=== PATIENT | male | born 1995 | race Caucasian/White ===

== ENCOUNTER → 2017-05-05 | Outpatient (CLI) | payer BC ==
--- NOTE | 2017-05-05 07:44 | MR ---
MRI CERVICAL SPINE: CLINICAL HISTORY: Cervical region radiculopathy per order. Headaches with tingling pain and tightness and spasms for 3 months causing pain or weakness into both arms and fingers per patient. TECHNIQUE: Multiplanar, multisequence imaging of the cervical spine is performed without IV contrast. COMPARISON: None. FINDINGS: There is partial visualization of a mucous retention cyst or polyp in inferior left maxilla ry sinus on sagittal image 1. Exam is suboptimal as is degraded by motion artifact. Sagittal images o f the cervical spine show the craniocervical junction to appear within normal limits. The cervical a nd upper thoracic spinal cord is normal in course, caliber, and signal. Vertebral alignment is anato luna. The vertebral body and intravertebral disk heights are normal.. Tiny posterior disc herniations are noted C2-C3, C5-C6, and C6-C7 levels minimally effacing anterior thecal sac on sagittal images. The bone marrow signal intensity is within normal limits. No significant spurring is seen. Axial images at C2-C3 level shows central disc protrusion mildly effacing anterior thecal sac, bilate ral neural foramina are patent. Axial images at C3-C4 level shows a more prominent right paracentral disc protrusion effacing kiran lateral thecal sac and causing asymmetric moderate right-sided neural foraminal narrowing. Axial images at C4-C5 level show less prominent but also right foraminal disc protrusion causing mild right-sided neural foraminal narrowing. Axial images at C5-C6 level show lobulated posterior disc protrusion mildly effacing anterior thecal sac and causing mild right-sided neural foraminal narrowing. Axial images at C6-C7 level show mild broad based disc protrusion minimally effacing anterior thecal sac, bilateral neural foramina are patent. Axial images at C7-T1 level are felt within normal limits. IMPRESSION: Multilevel degenerative changes in cervical spine as detailed above. Attention to C3-C4 l evel where most prominent disc herniation is identified.
== END | disposition home or self-care (01) ==
LOC: RADMRIMAIN 06:18
PROVIDERS: ATTEND Family Medicine
DX: M50.11 Cervical disc disorder with radiculopathy, high cervical region (principal); M47.22 Other spondylosis with radiculopathy, cervical region
CPT/HCPCS: 72141

== ENCOUNTER → 2017-06-18 | Outpatient (CLI) | payer BC ==
--- NOTE | 2017-06-18 08:45 | US ---
EXAMINATION TYPE: US abdomen complete DATE OF EXAM: 06/18/2017 COMPARISON: NONE CLINICAL HISTORY: R10.813 Right lower quadrant pain, RUQ pain. EXAM MEASUREMENTS: Liver Length: 13.1 cm Gallbladder Wall: 0.2 cm CBD: 0.2 cm Spleen: 10.8 cm Right Kidney: 11.2 x 5.0 x 5.3 cm Left Kidney: 11.1 x 6.2 x 5.9 cm Pancreas: Obscured by bowel gas Liver: wnl Gallbladder: wnl Evidence for sonographic Smith's sign: no CBD: wnl Spleen: wnl Right Kidney: Inferior pole obscured by bowel gas Left Kidney: Superior pole obscured by bowel gas Upper IVC: wnl Abd Aorta: wnl RLQ at area of pain scanned, tubular structure seen in this area that appears to be a portion of the appendix scanned. Portion visualized wnl. The liver is homogenous. The intrahepatic portion of the IVC and proximal abdominal aorta are within normal limits. There is no evidence of cholelithiasis. Common bile duct is unremarkable. The visu alized portions of the pancreas are homogenous. The spleen is unremarkable. Kidneys are symmetric a nd free of hydronephrosis. No renal lesions are seen. IMPRESSION: 1. No significant abnormality appreciated at this time.
--- NOTE | 2017-06-18 09:13 | XR ---
Cervical spine HISTORY: Headache Correlation to MR cervical spine 05/05/2017, 7 views of the cervical spine Cervical vertebral bodies show preserved height, alignment, and bone mineralization. Disc spaces and prevertebral soft tissues are normal. Mild spondylosis noted at C4-5, C6-7. No significant listhesis on flexion and extension views. Oblique views limited for evaluation of the foramina on the left, on the right there is some foraminal encroachment at C3-4. IMPRESSION: Degenerative disc disease. Additional findings above.
== END | disposition home or self-care (01) ==
LOC: RADUSWWP 07:01
PROVIDERS: ATTEND Family Medicine
DX: M50.30 Other cervical disc degeneration, unspecified cervical region (principal); M47.812 Spondylosis without myelopathy or radiculopathy, cervical region; R10.813 Right lower quadrant abdominal tenderness
CPT/HCPCS: 72052; 76700

== ENCOUNTER 2017-07-13 10:44 | Day surgery (SDC) | payer BC ==
[2017-07-09 11:20] VITALS: BMI 28.8
[2017-07-13] MEDS ORDERED: LACTATED RINGERS 1,000 ML IV ONE (11:07)
[2017-07-13] MEDS ORDERED: LIDOCAINE 1% 20 ML VIAL (10MG/ML) FOR IV START INTRADERMA ONE (11:08)
[2017-07-13 11:17] VITALS: TEMP 98.2
[2017-07-13] MEDS ORDERED: PROPOFOL 10 MG/ML 20 ML VIAL IV ONE (11:17)
[2017-07-13] MEDS ORDERED: LIDOCAINE 1% INJ 10MG/ML (20 ML MDV) ONE (11:17)
[2017-07-13] MEDS ORDERED: fentaNYL (PF) 50 MCG/ML 2 ML AMP ONE (11:17)
--- NOTE | 2017-07-13 12:01 | P.PCN ---
Date of Procedure: 07/13/17 Procedure(s) Performed: Procedures: 1. Esophagogastroduodenoscopy and biopsy. 2. Colonoscopy and biopsy. Reoperative diagnosis: Abdominal pain, weight loss and blood in the stools. Postoperative diagnosis: 1. Small sliding hiatal hernia with low-grade distal esophagitis. 2. Mild gastritis and duodenitis. 3. Normal colon and terminal ileum. 4. Multiple biopsies obtained from the duodenum, antrum and esophagus. Preparation: HalfLytely prep. Sedation: Was provided by anesthesia. Brief clinical history: The patient is a 22-year-old male who is scheduled for this evaluation for the above reasons. The patient, apparently, lost around 30 pounds over the last 3 months and had intermittent having issues with epigastric and lower abdominal pain and blood streaking of his stools over the last 3 or 4 weeks. Bowel movements before that on the soft side. No extraintestinal manifestations of inflammatory bowel disease. Had issues with reflux in the past. Procedure: With the patient on his left lateral decubitus position and after informed consent and adequate sedation, I passed the Olympus-GIF 160 video upper endoscope through the cricopharyngeus down the esophagus. There was a small sliding hiatal hernia. The distal esophagus showed a short superficial linear erosion or 2 but no ulcers, strictures or Siddiqui's esophagus. The endoscope was then passed into the stomach which was insufflated with air and inspected in detail including the retroflex view in the cardia. There was mottling, erythema and fading erosions in the antrum consistent with gastritis but no ulcers or bleeding. Pyloric channel did not show any ulcers. Duodenal bulb showed the edema, erythema and few erosions but no ulcers or bleeding. Post bulbar area and descending duodenum appeared healthy. I obtained biopsies from the duodenum, antrum and esophagus then the endoscope was withdrawn and I proceeded with the colonoscopy. Perianal area did not show any definite fissures or fistulas. There were no masses felt on digital rectal examination. The Olympus CFQ 160L video colonoscope was then inserted in the rectum in the usual fashion and advanced to the cecum. I intubated the ileocecal valve and examined the terminal ileum. Terminal ileum and colon appeared healthy with no edema, erythema, friability , ulceration, exudation or spontaneous bleeding. I obtained biopsies from the terminal ileum and randomly from the colon then I retroflexed the endoscope in the rectum before the endoscope was withdrawn. No definite hemorrhoids were seen. The patient tolerated the procedure well. Plan: The patient was reassured. Will await biopsy results and make further plans based on his course and biopsy results. He will follow up with you as planned and I will be happy to see in the office of his symptoms persist or recur.
[2017-07-13 12:09] VITALS: BP 123/77; PULSE 77; RESP 16
== END 2017-07-13 13:14 | disposition home or self-care (01) ==
LOC: ORWHC2ENDO 10:44
DX: K29.50 Unspecified chronic gastritis without bleeding (principal); K20.9 Esophagitis, unspecified; K44.9 Diaphragmatic hernia without obstruction or gangrene; K29.80 Duodenitis without bleeding; Z79.2 Long term (current) use of antibiotics
CPT/HCPCS: 88305; 45380; 43239; J2001; J3010; J2704

== ENCOUNTER 2017-11-20 09:48 | Emergency (ER) | payer BC ==
[2017-11-20] MEDS ORDERED: diphenhydrAMINE 50 MG/ML 1 ML VIAL IVP STA (10:13)
--- NOTE | 2017-11-20 10:15 | ED ---
General Adult HPI - General Chief complaint: Chest Pain Time Seen by Provider: 11/20/17 10:08 Source: patient, RN notes reviewed Mode of arrival: wheelchair Limitations: no limitations - History of Present Illness Initial comments: Patient is a pleasant 22-year-old male presenting to the emergency Department with complaints of chest discomfort. Patient was undergoing MRI of the brain secondary to chronic headaches. Following injection patient started getting sharp chest discomfort. Patient states this was moderate. Patient states this was around 20 minutes. Patient states that this time it is near resolved. Patient states only mild warmth sensation at this time. No associated dyspnea. No nausea or vomiting. No diaphoresis. No history of similar symptoms previously. No known history of heart disease. - Related Data Home Medications Medication Instructions Recorded Confirmed Multivitamins, Thera [Multivitamin 1 tab PO DAILY 07/21/17 07/21/17 (formulary)] Nexium(Dose Unknown) 1 tab PO DAILY 07/21/17 07/21/17 Previous Rx's Medication Instructions Recorded predniSONE 20 mg PO DAILY #5 tab 11/20/17 Allergies Allergy/AdvReac Type Severity Reaction Status Date / Time antibiotic Allergy Unknown Uncoded 11/20/17 09:51 Review of Systems ROS Statement: Those systems with pertinent positive or pertinent negative responses have been documented in the HPI. ROS Other: All systems not noted in ROS Statement are negative. Constitutional: Denies: fever Eyes: Denies: eye pain ENT: Denies: ear pain Respiratory: Denies: cough, dyspnea Cardiovascular: Reports: chest pain Endocrine: Denies: fatigue Gastrointestinal: Denies: abdominal pain Genitourinary: Denies: dysuria Musculoskeletal: Denies: back pain Skin: Denies: rash Neurological: Denies: weakness, confusion Past Medical History Past Medical History: GERD/Reflux Additional Past Medical History / Comment(s): See Dr Swanson H&P, "silght prolonged heart beat", having dizzy spells, History of Any Multi-Drug Resistant Organisms: None Reported Additional Past Surgical History / Comment(s): colonoscopy Past Anesthesia/Blood Transfusion Reactions: No Reported Reaction Past Psychological History: No Psychological Hx Reported Smoking Status: Never smoker Past Alcohol Use History: Daily Past Drug Use History: None Reported - Past Family History Mother Family Medical History: No Reported History General Exam Limitations: no limitations General appearance: alert, in no apparent distress Head exam: Present: atraumatic Eye exam: Present: normal appearance, PERRL ENT exam: Present: normal oropharynx Neck exam: Present: normal inspection Respiratory exam: Present: normal lung sounds bilaterally. Absent: chest wall tenderness Cardiovascular Exam: Present: regular rate, normal rhythm Expanded Peripheral pulses: 2+: Radial (R), Radial (L), Posterior Tibialis (R), Posterior Tibialis (L) GI/Abdominal exam: Present: soft. Absent: tenderness Extremities exam: Present: normal inspection. Absent: pedal edema, calf tenderness Neurological exam: Present: alert Psychiatric exam: Present: normal affect, normal mood Skin exam: Present: normal color Course Vital Signs 11/20/17 09:51 Temperature 98.3 F Pulse Rate 97 Respiratory 18 Rate Blood Pressure 138/86 O2 Sat by Pulse 98 Oximetry EKG Findings - EKG Comments: EKG Findings:: Normal sinus rhythm 90. [place] 186. QRS 106. QT 340. QTc 425. Normal axis. Normal QRS. No acute ST change. Medical Decision Making - Medical Decision Making Patient reevaluated and resting comfortably in bed. Symptom-free at this time. Patient updated on results and need for follow-up. - Lab Data Result diagrams: 11/20/17 10:36 11/20/17 10:36 Lab Results 11/20/17 11/20/17 11/20/17 Range/Units 10:36 10:36 10:36 WBC 5.8 (3.8-10.6) k/uL RBC 4.88 (4.30-5.90) m/uL Hgb 14.9 (13.0-17.5) gm/dL Hct 44.8 (39.0-53.0) % MCV 91.9 (80.0-100.0) fL MCH 30.5 (25.0-35.0) pg MCHC 33.2 (31.0-37.0) g/dL RDW 12.9 (11.5-15.5) % Plt Count 249 (150-450) k/uL Neutrophils % 57 % Lymphocytes % 31 % Monocytes % 5 % Eosinophils % 4 % Basophils % 1 % Neutrophils # 3.3 (1.3-7.7) k/uL Lymphocytes # 1.8 (1.0-4.8) k/uL Monocytes # 0.3 (0-1.0) k/uL Eosinophils # 0.2 (0-0.7) k/uL Basophils # 0.1 (0-0.2) k/uL PT (9.0-12.0) sec INR (<1.2) APTT (22.0-30.0) sec Sodium 139 (137-145) mmol/L Potassium 4.6 (3.5-5.1) mmol/L Chloride 103 (98-107) mmol/L Carbon Dioxide 24 (22-30) mmol/L Anion Gap 12 mmol/L BUN 13 (9-20) mg/dL Creatinine 0.98 (0.66-1.25) mg/dL Est GFR (CKD-EPI)AfAm >90 (>60 ml/min/1.73 sqM) Est GFR (CKD-EPI)NonAf >90 (>60 ml/min/1.73 sqM) Glucose 106 H (74-99) mg/dL Calcium 9.7 (8.4-10.2) mg/dL Magnesium 1.7 (1.6-2.3) mg/dL Total Bilirubin 0.5 (0.2-1.3) mg/dL AST 53 (17-59) U/L ALT 83 H (21-72) U/L Alkaline Phosphatase 81 (38-126) U/L Total Creatine Kinase 227 H (55-170) U/L CK-MB (CK-2) 1.8 (0.0-2.4) ng/mL CK-MB (CK-2) Rel Index 0.8 Troponin I <0.012 (0.000-0.034) ng/mL Total Protein 8.0 (6.3-8.2) g/dL Albumin 4.7 (3.5-5.0) g/dL 11/20/17 Range/Units 10:36 WBC (3.8-10.6) k/uL RBC (4.30-5.90) m/uL Hgb (13.0-17.5) gm/dL Hct (39.0-53.0) % MCV (80.0-100.0) fL MCH (25.0-35.0) pg MCHC (31.0-37.0) g/dL RDW (11.5-15.5) % Plt Count (150-450) k/uL Neutrophils % % Lymphocytes % % Monocytes % % Eosinophils % % Basophils % % Neutrophils # (1.3-7.7) k/uL Lymphocytes # (1.0-4.8) k/uL Monocytes # (0-1.0) k/uL Eosinophils # (0-0.7) k/uL Basophils # (0-0.2) k/uL PT 10.1 (9.0-12.0) sec INR 1.0 (<1.2) APTT 26.2 (22.0-30.0) sec Sodium (137-145) mmol/L Potassium (3.5-5.1) mmol/L Chloride (98-107) mmol/L Carbon Dioxide (22-30) mmol/L Anion Gap mmol/L BUN (9-20) mg/dL Creatinine (0.66-1.25) mg/dL Est GFR (CKD-EPI)AfAm (>60 ml/min/1.73 sqM) Est GFR (CKD-EPI)NonAf (>60 ml/min/1.73 sqM) Glucose (74-99) mg/dL Calcium (8.4-10.2) mg/dL Magnesium (1.6-2.3) mg/dL Total Bilirubin (0.2-1.3) mg/dL AST (17-59) U/L ALT (21-72) U/L Alkaline Phosphatase (38-126) U/L Total Creatine Kinase (55-170) U/L CK-MB (CK-2) (0.0-2.4) ng/mL CK-MB (CK-2) Rel Index Troponin I (0.000-0.034) ng/mL Total Protein (6.3-8.2) g/dL Albumin (3.5-5.0) g/dL - Radiology Data Radiology results: image reviewed (Chest x-ray shows no acute process) Disposition Clinical Impression: Chest pain, Contrast media adverse reaction Disposition: HOME SELF-CARE Condition: Stable Instructions: Chest Pain (ED) Additional Instructions: Please follow-up with primary care physician in the next day or 2 for recheck. Have primary care physician review visit from today as well as your MRI. Return for chest pain, difficulty breathing, rash, swelling of the throat or tongue or face, worsening symptoms or other concerns. [id number] Benadryl 4 times daily for the next 5 days. Prescriptions: predniSONE 20 mg PO DAILY #5 tab Is patient prescribed a controlled substance at d/c from ED?: No Referrals: Anayeli Sales DO [Primary Care Provider] - 1-2 days Time of Disposition: 11:33
--- NOTE | 2017-11-20 10:28 | MR ---
EXAMINATION TYPE: MR brain wo con DATE OF EXAM: 11/20/2017 10:14 AM. COMPARISON: NONE. HISTORY: Dizziness and hearing loss Technique: Multiplanar, multiecho imaging of the brain was obtained without intravenous contrast. The patient could not complete the examination due to chest pain. He was transferred to the ER. FINDINGS: Midline structures are unremarkable. There is a normal craniocervical junction. Echoplanar diffusion imaging is normal. There is a 2.7 cm retention cyst or polyp involving the left maxillary sinus. There are normal vascular flow voids. The orbits are unremarkable. There is no evidence of a CP angle mass lesion. There are scattered subcortical FLAIR lesions throughout both cerebral hemispheres. The largest measu res approximately 4 mm. These are nonspecific. Differential diagnosis includes hypertension, migraine headache, small vessel disease, demyelination and Lyme's disease. There is no mass effect or midline shift. I do not see evidence of intracranial blood. IMPRESSION: 1. NO ACUTE INTRACRANIAL ABNORMALITY. 2. SCATTERED FLAIR LESIONS. THESE ARE NONSPECIFIC.
[2017-11-20 10:48] LABS: Basophils # (A) 0.1 k/uL (0-0.2); Basophils % (A) 1 %; Eosinophils # (A) 0.2 k/uL (0-0.7); Eosinophils % (A) 4 %; HCT 44.8 % (39.0-53.0); HGB 14.9 gm/dL (13.0-17.5); Lymphocytes # (A) 1.8 k/uL (1.0-4.8); Lymphocytes % (A) 31 %; MCH 30.5 pg (25.0-35.0); MCHC 33.2 g/dL (31.0-37.0); MCV 91.9 fL (80.0-100.0); Mean Platelet Volume 6.5; Monocytes # (A) 0.3 k/uL (0-1.0); Monocytes % (A) 5 %; Neutrophils # (A) 3.3 k/uL (1.3-7.7); Neutrophils % (A) 57 %; Platelet Count 249 k/uL (150-450); RBC 4.88 m/uL (4.30-5.90); RDW 12.9 % (11.5-15.5); WBC 5.8 k/uL (3.8-10.6)
[2017-11-20 10:57] LABS: ALT 83 U/L (21-72); AST 53 U/L (17-59); Albumin 4.7 g/dL (3.5-5.0); Alkaline Phosphatase 81 U/L (38-126); Anion Gap 12 mmol/L; Blood Urea Nitrogen 13 mg/dL (9-20); Calcium 9.7 mg/dL (8.4-10.2); Carbon Dioxide 24 mmol/L (22-30); Chloride 103 mmol/L (98-107); Glucose 106 mg/dL (74-99); Magnesium 1.7 mg/dL (1.6-2.3); Partial Thromboplastin Time 26.2 sec (22.0-30.0); Potassium 4.6 mmol/L (3.5-5.1); Prothrombin Time 10.1 sec (9.0-12.0); Sodium 139 mmol/L (137-145); Total Bilirubin 0.5 mg/dL (0.2-1.3)
[2017-11-20 11:10] LABS: Creatine Kinase 227 U/L (55-170)
--- NOTE | 2017-11-20 11:14 | XR ---
EXAMINATION TYPE: XR chest 2V DATE OF EXAM ORDERED: 11/20/2017 HISTORY: Chest Pain. REFERENCE: None. FINDINGS: The lungs are clear. Pleural spaces are clear. Heart size is normal. IMPRESSION: NORMAL CHEST.
[2017-11-20 11:23] LABS: Creatine Kinase MB 1.8 ng/mL (0.0-2.4); Troponin I <0.012 ng/mL (0.000-0.034)
[2017-11-20 11:42] VITALS: BP 138/79; PULSE 80; RESP 16; TEMP 98
== END 2017-11-20 11:42 | disposition home or self-care (01) ==
LOC: EC 09:48
DX: R07.9 Chest pain, unspecified (principal); T50.8X5A Adverse effect of diagnostic agents, initial encounter; R51 Headache; K21.9 Gastro-esophageal reflux disease without esophagitis; Z79.899 Other long term (current) drug therapy; Z88.1 Allergy status to other antibiotic agents
CPT/HCPCS: 36415; 93005; 80053; 82550; 82553; 83735; 84484; 85025; 85610; 85730; 71046; 70551; 99285; 96374; J1200

== ENCOUNTER 2017-11-21 00:26 | Emergency (ER) | payer BC ==
[2017-11-21 00:33] VITALS: BP 150/93; PULSE 125; RESP 24; TEMP 98.2
[2017-11-21] MEDS ORDERED: KETOROLAC 30 MG/ML 1 ML VIAL IM STA (02:14)
[2017-11-21] MEDS ORDERED: diphenhydrAMINE 50 MG/ML 1 ML VIAL IM STA (02:14)
--- NOTE | 2017-11-21 02:14 | ED ---
General Adult HPI - General Chief complaint: Neck Pain/Injury Stated complaint: Neck injury Time Seen by Provider: 11/21/17 00:35 Source: patient Mode of arrival: ambulatory Limitations: no limitations - History of Present Illness Initial comments: Mina is a 22-year-old gentleman with a recent history of recurrent headaches for which she is undergoing a very thorough workup including head CT and an MRI of the head which was performed earlier today. Patient developed chest pain during his MRI and was evaluated in our emergency department. He is subsequently discharged home. Patient reports that throughout the evening he is developed progressively worsening pressure in his face above his eyes, around his nose. He reports that he feels as though his teeth are going to fall out due to the pain. Patient reports he has a history of seasonal ALLERGIES and has used Flonase in the past but never experienced pressure pain this severe. Patient reports he is currently not taking anything for seasonal ALLERGIES. He denies any recent fevers, chills, nausea or vomiting. also complains of chronic headache, neck pain and pain throughout his body. Patient has been following with multiple specialties for this. He does have a plan for follow-up with neurology for further evaluation of possible MS versus neuropathies. - Related Data Home Medications Medication Instructions Recorded Confirmed Multivitamins, Thera [Multivitamin 1 tab PO DAILY 07/21/17 07/21/17 (formulary)] Nexium(Dose Unknown) 1 tab PO DAILY 07/21/17 07/21/17 Previous Rx's Medication Instructions Recorded predniSONE 20 mg PO DAILY #5 tab 11/20/17 Cetirizine HCl [Zyrtec] 10 mg PO DAILY #30 tab 11/21/17 Fluticasone Nasal [place] [Flonase 2 spr EA NOSTRIL DAILY #1 bottle 11/21/17 Nasal [place]] Allergies Allergy/AdvReac Type Severity Reaction Status Date / Time antibiotic Allergy Unknown Uncoded 11/21/17 00:34 Review of Systems ROS Statement: Those systems with pertinent positive or pertinent negative responses have been documented in the HPI. ROS Other: All systems not noted in ROS Statement are negative. Past Medical History Past Medical History: GERD/Reflux Additional Past Medical History / Comment(s): See Dr Swanson H&P, "silght prolonged heart beat", having dizzy spells, History of Any Multi-Drug Resistant Organisms: None Reported Additional Past Surgical History / Comment(s): colonoscopy Past Anesthesia/Blood Transfusion Reactions: No Reported Reaction Past Psychological History: No Psychological Hx Reported Smoking Status: Never smoker Past Alcohol Use History: Daily Past Drug Use History: None Reported - Past Family History Mother Family Medical History: No Reported History General Exam - General Exam Comments Initial Comments: GENERAL: Patient is well-developed and well-nourished. Patient is nontoxic and well- hydrated and is in mild distress. HENT: Normocephalic, Atraumatic. Neck is soft and supple. No significant lymphadenopathy is noted. Oropharynx is clear. Moist mucous membranes. There is tenderness to palpation of the bilateral maxillary sinuses Normal dentition, normal oropharynx EYES: The sclera were anicteric and conjunctiva were pink and moist. Extraocular movements were intact and pupils were equal round and reactive to light. Eyelids were unremarkable. PULMONARY: Unlabored respirations. Good breath sounds bilaterally. No audible rales rhonchi or wheezing was noted. CARDIOVASCULAR: There is a regular rate and rhythm without any murmurs gallops or rubs. ABDOMEN: Soft and nontender with normal bowel sounds. SKIN: Skin is clear with no lesions or rashes and otherwise unremarkable. NEUROLOGIC: Patient is alert and oriented x3. Cranial nerves II through XII are grossly intact. Motor and sensory are also intact. Normal speech, volume and content. Symmetrical smile. MUSCULOSKELETAL: Normal extremities with adequate strength and full range of motion. No lower extremity swelling or edema. No calf tenderness. LYMPHATICS: No significant lymphadenopathy is noted PSYCHIATRIC: Patient is anxious and has a helpless affect Limitations: no limitations Limitations: no limitations Course Vital Signs 11/21/17 00:29 Temperature 98.2 F Pulse Rate 125 H Respiratory 24 Rate Blood Pressure 150/93 O2 Sat by Pulse 98 Oximetry Medical Decision Making - Medical Decision Making Patient was seen and evaluated, history was obtained from patient and review of medical records. The patient has a history of headaches, underwent MRI today. Returns today with sinus pressure reported feeling as though his upper teeth are going to be pushed out of his skull. Physical exam is unremarkable. Oral dentition is good with no signs of infection. There is significant tenderness to palpation of the bilateral maxillary sinuses. No evidence of acute sinus infection. From chronic headache. IM medications were ordered for the headache. We'll plan management with outpatient medications including Flonase and a antihistamine for treatment of sinus pressure. Patient is agreeable to this. Patient also curious about the results of his MRI. Printed MRI results were given to the patient. I had a brief discussion with him regarding the results. I advised him that he requires further follow-up with his neurosurgeon who ordered MRI as well as neurology for further management and evaluation. Patient somewhat anxious over the results which could indicate possible MS disease that he is not familiar with. I advised him that he needs to discuss this with his neurologist and discussed with his neurologist whether or not they would pursue further workup. I do suspect that the patient return to the ER today due to minimal symptoms and anxiety over MRI results and wanting to receive his MRI results. These were given to the patient. Disposition Clinical Impression: Headache, Sinus pressure Disposition: HOME SELF-CARE Condition: Good Instructions: Cluster Headache (ED), Migraine Headache (ED), Tension Headache ( ED), Allergies (ED) Prescriptions: Cetirizine HCl [Zyrtec] 10 mg PO DAILY #30 tab Fluticasone Nasal [place] [Flonase Nasal [place]] 2 spr EA NOSTRIL DAILY #1 bottle Is patient prescribed a controlled substance at d/c from ED?: No Referrals: Anayeli Sales DO [Primary Care Provider] - 1-2 days
== END 2017-11-21 03:12 | disposition home or self-care (01) ==
LOC: EC 00:26
DX: J34.89 Other specified disorders of nose and nasal sinuses (principal); K21.9 Gastro-esophageal reflux disease without esophagitis; Z79.899 Other long term (current) drug therapy; Z88.1 Allergy status to other antibiotic agents
CPT/HCPCS: 99283; 96372 ×2; J1200; J1885

== ENCOUNTER 2017-11-30 17:59 | Emergency (ER) | payer BC ==
[2017-11-30 18:06] VITALS: BP 152/94; PULSE 93; RESP 18; TEMP 98.4
[2017-11-30] MEDS ORDERED: predniSONE 50 MG TAB PO STA (18:37)
[2017-11-30] MEDS ORDERED: FAMOTIDINE 20 MG TAB PO STA (18:37)
--- NOTE | 2017-11-30 18:37 | ED ---
General Adult HPI - General Chief complaint: Chest Pain Stated complaint: back and chest pain Time Seen by Provider: 11/30/17 18:07 Source: patient Mode of arrival: ambulatory Limitations: no limitations - History of Present Illness Initial comments: 22-year-old male patient presents to the emergency department today for evaluation of a burning sensation across his upper chest, upper back, and his left arm. The patient states this started a couple of days ago. Patient states that there is a constant burning sensation however does seem to worsen at times. Patient states that it seemed to worsen today so he presented here for further evaluation. He denies any evidence of rash, lip swelling, tongue swelling, or throat swelling. States he is taking amoxicillin at this time for acute sinusitis. Patient states he is never taken this antibiotic before. He denies exposure to any other new substances including medications, soaps, lotions, creams, foods, or new clothing. Denies any itching to the area. Denies any shortness of breath, cough, or wheezing. Patient denies any recent fever, chills, shortness breath, chest pain, abdominal pain, nausea, vomiting, diarrhea, constipation, back pain, numbness, tingling, dizziness, weakness, hematuria, dysuria, urinary urgency, urinary frequency, headache, visual changes , or any other complaints. Patient does admit to shaving his chest with water only as lubricant a couple of days ago before the burning sensation started. He does not believe this is related. - Related Data Home Medications Medication Instructions Recorded Confirmed Amoxicillin 1,000 mg PO BID 11/30/17 11/30/17 Fluticasone Nasal [place] [Flonase 2 spr EA NOSTRIL HS 11/30/17 11/30/17 Nasal [place]] Previous Rx's Medication Instructions Recorded Azithromycin [Zithromax Z-pack] 0 mg PO DIRECTED #6 tab 11/30/17 Famotidine [Pepcid] 20 mg PO DAILY #3 tablet 11/30/17 predniSONE 50 mg PO DAILY #3 tablet 11/30/17 Allergies Allergy/AdvReac Type Severity Reaction Status Date / Time antibiotic Allergy Unknown Uncoded 11/21/17 00:34 Review of Systems ROS Statement: Those systems with pertinent positive or pertinent negative responses have been documented in the HPI. ROS Other: All systems not noted in ROS Statement are negative. Past Medical History Past Medical History: GERD/Reflux Additional Past Medical History / Comment(s): See Dr Swanson H&P, "silght prolonged heart beat", having dizzy spells, History of Any Multi-Drug Resistant Organisms: None Reported Additional Past Surgical History / Comment(s): colonoscopy Past Anesthesia/Blood Transfusion Reactions: No Reported Reaction Past Psychological History: No Psychological Hx Reported Smoking Status: Never smoker Past Alcohol Use History: Daily Past Drug Use History: None Reported - Past Family History Mother Family Medical History: No Reported History General Exam Limitations: no limitations General appearance: alert, in no apparent distress, other (This is a well- developed, well-nourished adult male patient in no acute distress. Vital signs upon presentation are temperature 98.4F, pulse 93, respirations 18, blood pressure 152/94, pulse ox 100% on room air.) Eye exam: Present: normal appearance, PERRL, EOMI. Absent: scleral icterus, conjunctival injection, periorbital swelling ENT exam: Present: normal exam, normal oropharynx, mucous membranes moist Respiratory exam: Present: normal lung sounds bilaterally. Absent: respiratory distress, wheezes, rales, rhonchi, stridor Cardiovascular Exam: Present: regular rate, normal rhythm, normal heart sounds. Absent: systolic murmur, diastolic murmur, rubs, gallop, clicks GI/Abdominal exam: Present: soft, normal bowel sounds. Absent: distended, tenderness, guarding, rebound, rigid Neurological exam: Present: alert, oriented X3, CN II-XII intact Psychiatric exam: Present: normal affect, normal mood Skin exam: Present: warm, dry, intact, normal color, rash (Erythema noted to the upper chest, neck, and upper back. No rash noted. Skin is blanchable. No petechiae. No vesicles.) Course Vital Signs 11/30/17 18:01 Temperature 98.4 F Pulse Rate 93 Respiratory 18 Rate Blood Pressure 152/94 O2 Sat by Pulse 100 Oximetry Medical Decision Making - Medical Decision Making 22-year-old male patient presents to the emergency department today for evaluation of burning sensation across his upper chest, upper back, and his left arm. Physical examination did reveal erythema to these areas. Patient is taking a new antibiotic and also does admit to shaving the areas a couple of days ago. I feel that symptoms could be related to a razor burn or as a reaction to the amoxicillin and he is taking. We'll treat for ALLERGIC reaction and just saul was instructed take Benadryl at home. He is instructed follow up with his primary care physician for recheck in 1-2 days. Return parameters were discussed in detail. He verbalizes understanding and agrees with this plan. Disposition Clinical Impression: Allergic reaction Disposition: HOME SELF-CARE Condition: Good Instructions: General Allergic Reaction (ED) Additional Instructions: Take medications as directed. Follow-up with your primary care physician for recheck in 1-2 days. Return here immediately for any new, worsening, or concerning symptoms. Prescriptions: Azithromycin [Zithromax Z-pack] 0 mg PO DIRECTED #6 tab Famotidine [Pepcid] 20 mg PO DAILY #3 tablet predniSONE 50 mg PO DAILY #3 tablet Is patient prescribed a controlled substance at d/c from ED?: No Referrals: Anayeli Sales DO [Primary Care Provider] - 1-2 days Time of Disposition: 18:37
== END 2017-11-30 18:47 | disposition home or self-care (01) ==
LOC: EC 17:59
DX: T78.40XA Allergy, unspecified, initial encounter (principal); Z79.51 Long term (current) use of inhaled steroids; Z88.1 Allergy status to other antibiotic agents
CPT/HCPCS: 99284; J7512

== ENCOUNTER 2017-12-01 19:44 | Emergency (ER) | payer BC ==
[2017-12-01 19:50] VITALS: BP 143/84; PULSE 95; RESP 18; TEMP 98.2
[2017-12-01] MEDS ORDERED: FAMOTIDINE 20 MG TAB PO STA (20:09)
[2017-12-01] MEDS ORDERED: predniSONE 50 MG TAB PO STA (20:09)
[2017-12-01] MEDS ORDERED: diphenhydrAMINE 25 MG CAP PO STA (20:09)
[2017-12-01 20:20] LABS: Glucose,Whole Blood 106 mg/dL (75-99)
--- NOTE | 2017-12-01 20:25 | ED ---
General Adult HPI - General Chief complaint: Recheck/Abnormal Lab/Rx Stated complaint: Revisit-allergic reaction Time Seen by Provider: 12/01/17 19:59 Source: patient Mode of arrival: ambulatory Limitations: no limitations - History of Present Illness Initial comments: 22-year-old male patient presents to the emergency department today for evaluation of burning sensation across his chest, abdomen, and arms. Patient states his been going on for the last 3-4 days. Patient was seen any emergency department here yesterday diagnosed with ALLERGIC reaction. He was discharged home with prescriptions for prednisone and Pepcid and also instructed to take Benadryl as needed for symptom relief. Patient states he did get his prescriptions filled has not taken his medication. Patient denies any lip swelling, tongue swelling, throat swelling, or shortness of breath. Patient has no fever or chills. Vital signs are stable. Patient denies any recent chest pain, abdominal pain, nausea, vomiting, diarrhea, constipation, back pain , numbness, tingling, dizziness, weakness, hematuria, dysuria, urinary urgency, urinary frequency, headache, visual changes, or any other complaints. - Related Data Home Medications Medication Instructions Recorded Confirmed Amoxicillin 1,000 mg PO BID 11/30/17 11/30/17 Fluticasone Nasal [place] [Flonase 2 spr EA NOSTRIL HS 11/30/17 11/30/17 Nasal [place]] Previous Rx's Medication Instructions Recorded Azithromycin [Zithromax Z-pack] 0 mg PO DIRECTED #6 tab 11/30/17 Famotidine [Pepcid] 20 mg PO DAILY #3 tablet 11/30/17 predniSONE 50 mg PO DAILY #3 tablet 11/30/17 Allergies Allergy/AdvReac Type Severity Reaction Status Date / Time Iodinated Contrast- Oral and Allergy Unknown Verified 12/01/17 19:50 IV Dye levofloxacin [From Levaquin] Allergy Unknown Verified 12/01/17 19:50 antibiotic Allergy Unknown Uncoded 12/01/17 19:50 Review of Systems ROS Statement: Those systems with pertinent positive or pertinent negative responses have been documented in the HPI. ROS Other: All systems not noted in ROS Statement are negative. Past Medical History Past Medical History: GERD/Reflux Additional Past Medical History / Comment(s): See Dr Swanson H&P, "silght prolonged heart beat", having dizzy spells, History of Any Multi-Drug Resistant Organisms: None Reported Past Surgical History: No Surgical Hx Reported Additional Past Surgical History / Comment(s): colonoscopy Past Anesthesia/Blood Transfusion Reactions: No Reported Reaction Past Psychological History: No Psychological Hx Reported Smoking Status: Never smoker Past Alcohol Use History: Daily Past Drug Use History: None Reported - Past Family History Mother Family Medical History: No Reported History General Exam Limitations: no limitations General appearance: alert, in no apparent distress, other (This is a well- developed, well-nourished adult male patient in no acute distress. Vital signs upon presentation are temperature 98.2F, pulse 95, respirations 18, blood pressure 143/84, pulse ox 99% on room air.) Eye exam: Present: normal appearance, PERRL, EOMI. Absent: scleral icterus, conjunctival injection, periorbital swelling ENT exam: Present: normal exam, normal oropharynx, mucous membranes moist Respiratory exam: Present: normal lung sounds bilaterally. Absent: respiratory distress, wheezes, rales, rhonchi, stridor Cardiovascular Exam: Present: regular rate, normal rhythm, normal heart sounds. Absent: systolic murmur, diastolic murmur, rubs, gallop, clicks GI/Abdominal exam: Present: soft, normal bowel sounds. Absent: distended, tenderness, guarding, rebound, rigid Neurological exam: Present: alert, oriented X3, CN II-XII intact Psychiatric exam: Present: normal affect, normal mood Skin exam: Present: warm, dry, intact, normal color, other (Patient has erythema surrounding the neck, no evidence of rash, vesicles, petechiae, or purpura.). Absent: rash Course Vital Signs 12/01/17 19:46 Temperature 98.2 F Pulse Rate 95 Respiratory 18 Rate Blood Pressure 143/84 O2 Sat by Pulse 99 Oximetry Medical Decision Making - Medical Decision Making 22-year-old male patient presented to the emergency department today for evaluation of burning to the skin of his chest arms and upper back. Patient was seen and evaluated here yesterday diagnosed with ALLERGIC reaction. Patient has not taken the medication he was prescribed. Patient states his symptoms are not worsened however has not gone away. Physical examination did reveal some erythema surrounding the neck. Redness to the upper chest and back has improved since yesterday. Patient was given doses of his medication here in the emergency department. He is instructed to complete prescriptions as prescribed. He is instructed follow up with his primary care physician of things do not improve over the next 1-2 days. Return parameters discussed in detail. He verbalizes understanding and agrees with this plan. - Lab Data Lab Results 12/01/17 Range/Units 20:17 POC Glucose (mg/dL) 106 H (75-99) mg/dL POC Glu [employer] Insurance ID Josefina Olsen Disposition Clinical Impression: Allergic reaction Disposition: HOME SELF-CARE Condition: Good Instructions: General Allergic Reaction (ED) Additional Instructions: Take medications as directed. Follow-up with her primary care physician for recheck in 1-2 days. Return here immediately for any new, worsening, or concerning symptoms. Is patient prescribed a controlled substance at d/c from ED?: No Referrals: Anayeli Sales DO [Primary Care Provider] - 1-2 days Time of Disposition: 20:25
== END 2017-12-01 20:31 | disposition home or self-care (01) ==
LOC: EC 19:44
DX: T78.40XA Allergy, unspecified, initial encounter (principal); Z79.51 Long term (current) use of inhaled steroids; Z91.041 Radiographic dye allergy status; Z88.1 Allergy status to other antibiotic agents
CPT/HCPCS: 36415; 99283; 99284

== ENCOUNTER 2017-12-02 17:56 | Emergency (ER) | payer BC ==
[2017-12-02 18:03] VITALS: BP 147/90; PULSE 90; RESP 20; TEMP 98.1
[2017-12-02] MEDS ORDERED: DIPH,PERTUS(ACELL)TETVAC-LF 0.5 ML VIAL IM ONE (18:56)
--- NOTE | 2017-12-02 19:07 | ED ---
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 Pt states that for the past few months he has had sharp shooting pains from neck down to hands and he feels like it is causing hand spasms. Pt was concerned he had tetanus from these symptoms. Pt does admits to some neck pain that he states he was diagnosed with herniated discs in the neck and is following up with a neurologist. Pt did state he had an abnormal MRI with lesions on the brain that were causing him great anxiety. Pt was seen here 5x in the past month for similar complaints. Pt denies headache, dizziness, confusion, muscle weakness, chest pain, shortness of breath, facial symmetry changes or any other associated symptoms. Pt states he is supposed to get blood work with neurologist in a few weeks and he would like that done now and a tetanus shot. Patient denies any recent fever, chills, shortness of breath, chest pain, back pain, abdominal pain, nausea or vomiting, numbness, dysuria or hematuria, constipation or diarrhea, headaches or visual changes, or any other complaints. Pt does state he thinks his chest looks more red than normal and he was diagnosed with an allergic reaction a few days ago but he didnt take the medication. Upon arrival pt appears well, there are no signs of acute distress. - Related Data Home Medications Medication Instructions Recorded Confirmed Ibuprofen [Motrin Ib] 400 mg PO Q6HR PRN 12/02/17 12/02/17 Allergies Allergy/AdvReac Type Severity Reaction Status Date / Time Iodinated Contrast- Oral and Allergy Unknown Verified 12/02/17 18:25 IV Dye levofloxacin [From Levaquin] Allergy Unknown Verified 12/02/17 18:25 antibiotic Allergy Unknown Uncoded 12/02/17 18:03 Review of Systems ROS Statement: Those systems with pertinent positive or pertinent negative responses have been documented in the HPI. ROS Other: All systems not noted in ROS Statement are negative. Constitutional: Denies: fever, chills Eyes: Denies: vision change ENT: Denies: ear pain, throat pain Respiratory: Denies: cough, dyspnea Cardiovascular: Denies: chest pain, palpitations, dyspnea on exertion Endocrine: Denies: fatigue Gastrointestinal: Denies: abdominal pain, nausea, vomiting, diarrhea, constipation Genitourinary: Denies: urgency, dysuria Musculoskeletal: Reports: back pain (chronic neck pain) Skin: Denies: rash, lesions Neurological: Denies: headache, weakness, numbness, paresthesias, confusion, abnormal gait, vertigo Psychiatric: Denies: anxiety, depression Past Medical History Past Medical History: GERD/Reflux Additional Past Medical History / Comment(s): See Dr Swanson H&P, "silght prolonged heart beat", having dizzy spells, History of Any Multi-Drug Resistant Organisms: None Reported Past Surgical History: No Surgical Hx Reported Additional Past Surgical History / Comment(s): colonoscopy Past Anesthesia/Blood Transfusion Reactions: No Reported Reaction Past Psychological History: No Psychological Hx Reported Smoking Status: Never smoker Past Alcohol Use History: Daily Past Drug Use History: Marijuana - Past Family History Mother Family Medical History: No Reported History General Exam - General Exam Comments Initial Comments: General: The patient is awake and alert, in no distress, and does not appear acutely ill. Eye: +3 pupils are equal, round and reactive to light, extra-ocular movements are intact. No nystagmus. There is normal conjunctiva bilaterally. No signs of icterus. No signs of photophobia. Ears, nose, mouth and throat: There are moist mucous membranes and no oral lesions. Neck: The neck is supple, there is no tenderness or JVD. Mild midline and paravertebral tenderness to palpation, . Full ROM at C-spine. No nuchal rigidty or meningeal irritation signs. Cardiovascular: There is a regular rate and rhythm. No murmur, rub or gallop is appreciated. Respiratory: Lungs are clear to auscultation, respirations are non-labored, breath sounds are equal. No wheezes, stridor, rales, or rhonchi. Musculoskeletal: Normal ROM, no tenderness. Strength 5/5. Sensation intact. Pulses equal bilaterally 2+. Neurological: A&O x 3. CN II-XII intact, There are no obvious motor or sensory deficits. Coordination appears grossly intact. Speech is normal. Skin: Skin is warm and dry and no rashes or lesions are noted. No erythema noted of chest. Psychiatric: Cooperative, appropriate mood & affect, normal judgment. Limitations: no limitations Course Vital Signs 12/02/17 18:01 Temperature 98.1 F Pulse Rate 90 Respiratory 20 Rate Blood Pressure 147/90 O2 Sat by Pulse 98 Oximetry Medical Decision Making - Medical Decision Making Upon arrival pt afebrile. Appear non toxic in no acute distress. Pt given tetanus shot. At this time I feel pt has a radiculopathy given hx of neck herniation and chronic symptoms. Pt PE unremarkable, appears WNL no evidence of weakness of the UE/LE. There are no signs/symptoms of tetanus. No signs of muscle spasms/fasciulations. Pt does complain of mild midline tenderness to palpation of the neck, no evidence of stiffness/nuchal rigidity/or menigeal irritation, pt denies headache. Inspect of the chest revealed no rashes/ erythema or lesions. Pt states that he is nervous about the lesion on MRI and wanted basic lab work, he stated he didnt want to wait until his next appointment with neurology in [facility]. At this time I feel pt remainder ROS (- ) there is no acute intracranial processes. Pt symptoms appear chronic upon chart review. Pt was given reassurance and instructed to f/u with primary care physician in the next 1-2 days. He agreed with plan and was discharged in stable condition. Case discussed with Dr. reyes prior to d/c who agrees with impression and plan. Disposition Clinical Impression: Radiculopathy affecting upper extremity Disposition: HOME SELF-CARE Condition: Good Instructions: Cervical Radiculopathy (ED) Additional Instructions: Please use medication as discussed. Please follow-up with neurologist in the next 1-2 days. Please return to emergency room if the symptoms increase or worsen or for any other concerns. Is patient prescribed a controlled substance at d/c from ED?: No Referrals: Anayeli Sales DO [Primary Care Provider] - 1-2 days Time of Disposition: 19:07
== END 2017-12-02 19:26 | disposition home or self-care (01) ==
LOC: EC 17:56
DX: M54.10 Radiculopathy, site unspecified (principal); Z23 Encounter for immunization; Z86.69 Personal history of other diseases of the nervous system and sense organs; Z88.1 Allergy status to other antibiotic agents; Z91.041 Radiographic dye allergy status
CPT/HCPCS: 90471; 90715; 99283

== ENCOUNTER 2017-12-25 13:36 | Emergency (ER) | payer BC ==
[2017-12-25] MEDS ORDERED: SODIUM CHLORIDE 0.9% 1,000 ML IV STA ×2 (14:53)
--- NOTE | 2017-12-25 15:08 | ED ---
Nausea/Vomiting/Diarrhea HPI - General Chief complaint: Nausea/Vomiting/Diarrhea Stated complaint: Body aches Time Seen by Provider: 12/25/17 14:48 Source: patient, RN notes reviewed Mode of arrival: ambulatory Limitations: no limitations - History of Present Illness Initial comments: This is a 22-year-old male who presents with complaints of 4 days of feeling exhausted some body aches he states some "nerve pain" since some dizziness. He relates this to starting after he ate some deer meat. No diarrhea no constipation he is not asked he vomited he states his been holding a bag. He did decrease oral intake. No other modifying factors at this time MD complaint: nausea, other - Related Data Home Medications Medication Instructions Recorded Confirmed Ibuprofen [Motrin Ib] 400 mg PO Q6HR PRN 12/02/17 12/25/17 Multivitamins, Thera [Multivitamin 1 tab PO DAILY 12/25/17 12/25/17 (formulary)] Previous Rx's Medication Instructions Recorded Magnesium 200 mg PO DAILY #7 tablet 12/25/17 Allergies Allergy/AdvReac Type Severity Reaction Status Date / Time Iodinated Contrast- Oral and Allergy Unknown Verified 12/25/17 15:03 IV Dye levofloxacin [From Levaquin] Allergy Unknown Verified 12/25/17 15:03 antibiotic Allergy Unknown Uncoded 12/25/17 14:30 Review of Systems ROS Statement: Those systems with pertinent positive or pertinent negative responses have been documented in the HPI. ROS Other: All systems not noted in ROS Statement are negative. Past Medical History Past Medical History: GERD/Reflux Additional Past Medical History / Comment(s): See Dr Swanson H&P, "silght prolonged heart beat", having dizzy spells, History of Any Multi-Drug Resistant Organisms: None Reported Past Surgical History: No Surgical Hx Reported Additional Past Surgical History / Comment(s): colonoscopy Past Anesthesia/Blood Transfusion Reactions: No Reported Reaction Past Psychological History: No Psychological Hx Reported Smoking Status: Never smoker Past Alcohol Use History: Daily Past Drug Use History: Marijuana - Past Family History Mother Family Medical History: No Reported History General Exam - General Exam Comments Initial Comments: This is a well-developed well-nourished awake alert oriented 3 male Limitations: no limitations General appearance: alert, in no apparent distress Head exam: Present: atraumatic, normocephalic, normal inspection Eye exam: Present: normal appearance, PERRL, EOMI. Absent: scleral icterus, conjunctival injection, periorbital swelling ENT exam: Present: mucous membranes dry Neck exam: Present: normal inspection. Absent: tenderness, meningismus, lymphadenopathy Respiratory exam: Present: normal lung sounds bilaterally. Absent: respiratory distress, wheezes, rales, rhonchi, stridor Cardiovascular Exam: Present: regular rate, normal rhythm, normal heart sounds. Absent: systolic murmur, diastolic murmur, rubs, gallop, clicks GI/Abdominal exam: Present: soft, normal bowel sounds. Absent: distended, tenderness, guarding, rebound, rigid Extremities exam: Present: normal inspection, full ROM, normal capillary refill. Absent: tenderness, pedal edema, joint swelling, calf tenderness Back exam: Present: normal inspection Neurological exam: Present: alert, oriented X3, CN II-XII intact Psychiatric exam: Present: normal affect, normal mood Skin exam: Present: warm, dry, intact, normal color. Absent: rash Course Vital Signs 12/25/17 14:29 Temperature 98.3 F Pulse Rate 91 Respiratory 18 Rate Blood Pressure 147/90 O2 Sat by Pulse 100 Oximetry Medical Decision Making - Medical Decision Making Reevaluation patient is feeling much improved after IV hydration. I did discuss the findings with him the symptoms are likely secondary to gastritis. He was slightly dehydrated I did also recommend supplementation of magnesium. He will be discharge is follow-up with his doctor return when necessary - Lab Data Result diagrams: 12/25/17 15:15 12/25/17 15:15 Lab Results 12/25/17 12/25/17 Range/Units 15:15 15:15 WBC 5.4 (3.8-10.6) k/uL RBC 4.63 (4.30-5.90) m/uL Hgb 14.9 (13.0-17.5) gm/dL Hct 43.1 (39.0-53.0) % MCV 93.0 (80.0-100.0) fL MCH 32.1 (25.0-35.0) pg MCHC 34.6 (31.0-37.0) g/dL RDW 13.0 (11.5-15.5) % Plt Count 254 (150-450) k/uL Neutrophils % 58 % Lymphocytes % 32 % Monocytes % 5 % Eosinophils % 2 % Basophils % 1 % Neutrophils # 3.1 (1.3-7.7) k/uL Lymphocytes # 1.7 (1.0-4.8) k/uL Monocytes # 0.3 (0-1.0) k/uL Eosinophils # 0.1 (0-0.7) k/uL Basophils # 0.1 (0-0.2) k/uL Sodium 139 (137-145) mmol/L Potassium 4.6 (3.5-5.1) mmol/L Chloride 104 (98-107) mmol/L Carbon Dioxide 25 (22-30) mmol/L Anion Gap 10 mmol/L BUN 15 (9-20) mg/dL Creatinine 0.85 (0.66-1.25) mg/dL Est GFR (CKD-EPI)AfAm >90 (>60 ml/min/1.73 sqM) Est GFR (CKD-EPI)NonAf >90 (>60 ml/min/1.73 sqM) Glucose 114 H (74-99) mg/dL Calcium 10.1 (8.4-10.2) mg/dL Magnesium 1.8 (1.6-2.3) mg/dL Total Bilirubin 0.6 (0.2-1.3) mg/dL AST 42 (17-59) U/L ALT 60 (21-72) U/L Alkaline Phosphatase 68 (38-126) U/L Total Protein 8.4 H (6.3-8.2) g/dL Albumin 5.2 H (3.5-5.0) g/dL Amylase 123 H (30-110) U/L Lipase 54 (23-300) U/L - EKG Data -: EKG Interpreted by [facility] EKG shows normal: sinus rhythm, axis, intervals, QRS complexes, ST-T waves ( Sinus rhythm rate 78. Interval 182 QRS duration 108 QT since QTC 370/[address]-T wave changes) Rate: normal - Radiology Data Radiology results: pending (The patient refused imaging studies) Disposition Clinical Impression: Gastritis, Dehydration Disposition: HOME SELF-CARE Condition: Good Instructions: Gastritis (ED), Dehydration (ED) Prescriptions: Magnesium 200 mg PO DAILY #7 tablet Is patient prescribed a controlled substance at d/c from ED?: No Referrals: None,Stated [Primary Care Provider] - 1-2 days
[2017-12-25 15:31] LABS: Basophils # (A) 0.1 k/uL (0-0.2); Basophils % (A) 1 %; Eosinophils # (A) 0.1 k/uL (0-0.7); Eosinophils % (A) 2 %; HCT 43.1 % (39.0-53.0); HGB 14.9 gm/dL (13.0-17.5); Lymphocytes # (A) 1.7 k/uL (1.0-4.8); Lymphocytes % (A) 32 %; MCH 32.1 pg (25.0-35.0); MCHC 34.6 g/dL (31.0-37.0); Mean Platelet Volume 6.8; Monocytes # (A) 0.3 k/uL (0-1.0); Monocytes % (A) 5 %; Neutrophils # (A) 3.1 k/uL (1.3-7.7); Neutrophils % (A) 58 %; Platelet Count 254 k/uL (150-450); RBC 4.63 m/uL (4.30-5.90); WBC 5.4 k/uL (3.8-10.6)
[2017-12-25 15:39] LABS: ALT 60 U/L (21-72); AST 42 U/L (17-59); Albumin 5.2 g/dL (3.5-5.0); Alkaline Phosphatase 68 U/L (38-126); Amylase 123 U/L (30-110); Anion Gap 10 mmol/L; Blood Urea Nitrogen 15 mg/dL (9-20); Calcium 10.1 mg/dL (8.4-10.2); Carbon Dioxide 25 mmol/L (22-30); Chloride 104 mmol/L (98-107); Glucose 114 mg/dL (74-99); Lipase 54 U/L (23-300); Magnesium 1.8 mg/dL (1.6-2.3); Potassium 4.6 mmol/L (3.5-5.1); Sodium 139 mmol/L (137-145); Total Bilirubin 0.6 mg/dL (0.2-1.3); Total Protein 8.4 g/dL (6.3-8.2)
[2017-12-25 16:40] VITALS: BP 138/89; PULSE 89; RESP 20; TEMP 97.7
== END 2017-12-25 16:45 | disposition home or self-care (01) ==
LOC: EC 13:36
DX: E86.0 Dehydration (principal); K29.70 Gastritis, unspecified, without bleeding; Z88.1 Allergy status to other antibiotic agents; Z91.041 Radiographic dye allergy status
CPT/HCPCS: 36415; 80053; 82150; 83690; 83735; 85025; 93005; 96360; 99283

== ENCOUNTER 2018-05-13 11:02 | Emergency (ER) | payer BC ==
[2018-05-13 11:33] VITALS: BP 135/84; PULSE 70; RESP 18; TEMP 97.6
[2018-05-13] MEDS ORDERED: KETOROLAC 30 MG/ML 1 ML VIAL IM STA (12:42)
--- NOTE | 2018-05-13 12:43 | ED ---
Headache HPI - General Chief Complaint: Headache Stated Complaint: Headache behind eye Time Seen by Provider: 05/13/18 12:02 Mode of arrival: ambulatory Limitations: no limitations - History of Present Illness Initial Comments: 23-year-old male presents for headache. Patient states he has a headache is localized behind his right eye. Patient states he is experiencing his headache in the past. Patient states that often comes and go. Patient states it is alleviated with Aleve. Patient states it has been persistently present for evaluation. Patient states he thinks he has a sinus infection and this is the cause he states he has had sinus pressure mild cough and the pain increases when he holds his head down. Patient states that his vision in his right eye seems slightly blurry in comparison the left. He states this has occurred in the past with a headache. Patient states that he has had no head trauma he denies diplopia or vision loss he denies any muscle weakness or sensation deficits he denies any paresthesias. He denies any difference in gait or dizziness. Patient states the headache came on gradually. He states that time feels like an ice pick type his right eye. Patient denies any conjunctival injection he denies any vomiting. Patient denies any fevers chills night sweats or neck stiffness. Patient states he would like to be discharged before work at 2 PM, he states omar antibiotics usually works for his sinus infection. Pt denied any allergies to medications.Upon arrival pt VS within acceptable limits. Patient denies any recent of shortness of breath, chest pain, back pain, abdominal pain, nausea or vomiting, dysuria or hematuria, constipation or diarrhea,or any other complaints. - Related Data Home Medications Medication Instructions Recorded Confirmed Aspirin/Acetaminophen/Caffeine 2 tab PO Q6H PRN 05/13/18 05/13/18 [Excedrin Extra Strength Caplet] Previous Rx's Medication Instructions Recorded Azithromycin [Zithromax Z-pack] 0 mg PO DIRECTED #6 tab 05/13/18 Allergies Allergy/AdvReac Type Severity Reaction Status Date / Time amoxicillin Allergy Unknown Verified 05/13/18 19:11 Iodinated Contrast- Oral and Allergy Unknown Verified 05/13/18 11:45 IV Dye levofloxacin [From Levaquin] Allergy Unknown Verified 05/13/18 11:45 Review of Systems ROS Statement: Those systems with pertinent positive or pertinent negative responses have been documented in the HPI. ROS Other: All systems not noted in ROS Statement are negative. Past Medical History Past Medical History: GERD/Reflux Additional Past Medical History / Comment(s): See Dr Sky Avendano&[place], "silght prolonged heart beat", having dizzy spells, History of Any Multi-Drug Resistant Organisms: None Reported Past Surgical History: No Surgical Hx Reported Additional Past Surgical History / Comment(s): colonoscopy Past Anesthesia/Blood Transfusion Reactions: No Reported Reaction Past Psychological History: Anxiety Smoking Status: Never smoker Past Alcohol Use History: Daily Past Drug Use History: Marijuana - Past Family History Mother Family Medical History: No Reported History General Exam - General Exam Comments Initial Comments: General: The patient is awake and alert, in no distress, and does not appear acutely ill. Eye: +3 mm pupils are equal, round and reactive to light, extra-ocular movements are intact. No photophobia No nystagmus. There is normal conjunctiva bilaterally. No signs of icterus. IOP OD 15 OS 18 Ears, nose, mouth and throat: There are moist mucous membranes and no oral lesions. Oropharynx nonerythematous. Neck membranes within normal limits. Uvula midline. No anterior cervical lymph not the period. Palpation of the maxillary sinuses bilaterally. Neck: The neck is supple, there is no tenderness or JVD. No nuchal rigidity Cardiovascular: There is a regular rate and rhythm. No murmur, rub or gallop is appreciated. Respiratory: Lungs are clear to auscultation, respirations are non-labored, breath sounds are equal. No wheezes, stridor, rales, or rhonchi. Gastrointestinal: Soft, non-distended, non-tender abdomen without masses or organomegaly noted. There is no rebound or guarding present. No CVA tenderness. Bowel sounds are unremarkable. Musculoskeletal: Normal ROM, no tenderness. Strength 5/5. Sensation intact. Pulses equal bilaterally 2+. Neurological: A&O x 3. CN II-XII intact, memory intact to immediately, intermediate and detention recall. Able to follow simple verbal. Able to name a common object (pen). High quality, labial (pa) and lingual (la) speech. Low quality posterior pharynx/larynx (ga) voice sounds. Able to express general knowledge (days in a week). No hemineglect or inattention noted. Finger agnosia (-) and spatially oriented (identified L index finger touched R shoulder with L index finger). Light touch and temperature sensation present over the face, chest, abdomen, back, UE bilaterally, and LE bilaterally. Able to localize point during point localization b/l and extinction. No visible bulk atrophy, hypertrophy, fasciculations, or myoclonus of the UE or LE b/l. Full PROM in UE and LE b/l. Bilateral muscle strength 5/5 for the following muscles: deltoid, bi ceps, triceps, brachioradialis, wrist extensors/flexor, hip flexor, hip abductors/adductors, hamstrings, quadriceps, feet dorsiflexors/plantar flexors. Finger to nose, finger to the examiners finger, and heel to lopez coordinated and accurate b/l. Coordinated and even demonstration of hand flip, finger to thumb, and toe tap b/l. (-) Gait is coordinated and even in stride with tandem, toe and heel walk. Maintains balance with monopedal stance. (-) Romberg. (-) pronator drift. No nuchal rigidity. (-) Brudzinskis and Kernig signs. Skin: Skin is warm and dry and no rashes or lesions are noted. Psychiatric: Cooperative, appropriate mood & affect, normal judgment. Limitations: no limitations Course Vital Signs 05/13/18 11:29 Temperature 97.6 F Pulse Rate 70 Respiratory 18 Rate Blood Pressure 135/84 O2 Sat by Pulse 100 Oximetry Medical Decision Making - Medical Decision Making Today bfo-xine-ate male presenting for sinus pressure and headache. Pt states eye seemed slightly blurry at times of the right. Pt has not had eye evaluation in years. No glasses. Patient states he has experienced a headache behind his right eye before. Denies change in characteristic. Patient had MRI in November with lesions, he states he is cleared by neurology stating these were benign. Patient states the headache came on gradually he also admitted to sinus pressure with tooth pain. Patient has no focal neurological deficits. Patient appears well and nontoxic no meningeal irritation sign. Discussed imaging studies, patient states he does not want a CT today he states he feels this is due to his sinuses and does not want more radiation. Patient treated symptomatically, states improvement of headache. Patient will be prescribed amoxicillin for sinusitis. Patient instructed to follow-up with neurologist if headaches persist. Discussed the case with her private Dr. Greer was agreeable plan. Patient urged discharge stating he has to work. Patient discharged appearing well. Pt called back stating he actually has allergy to amoxicillin pt failed to tell triage earler or myself. Added to allergy list and pt prescribed z pack. Disposition Clinical Impression: Cluster headache, Sinusitis Disposition: HOME SELF-CARE Condition: Good Instructions (If sedation given, give patient instructions): Acute Headache (ED) Additional Instructions: Please use medication as discussed. Please follow-up with family doctor in the next 2 days, please present to ophthalmology for eye examination. If headaches persist please follow-up with your neurologist as discussed. Please return to emergency room if the symptoms increase or worsen or for any other concerns. Prescriptions: Azithromycin [Zithromax Z-pack] 0 mg PO DIRECTED #6 tab Is patient prescribed a controlled substance at d/c from ED?: No Referrals: Anayeli Sales DO [Primary Care Provider] - 1-2 days Sergei Christina MD [STAFF PHYSICIAN] - 1-2 days Time of Disposition: 12:55
== END 2018-05-13 13:28 | disposition home or self-care (01) ==
LOC: EC 11:02
DX: J32.9 Chronic sinusitis, unspecified (principal); G44.009 Cluster headache syndrome, unspecified, not intractable; Z88.0 Allergy status to penicillin; Z88.1 Allergy status to other antibiotic agents; Z91.041 Radiographic dye allergy status
CPT/HCPCS: 96372; 99283

== ENCOUNTER 2018-05-16 14:51 | Emergency (ER) | payer BC ==
[2018-05-16 15:21] VITALS: RESP 18
[2018-05-16] MEDS ORDERED: KETOROLAC 30 MG/ML 1 ML VIAL IM STA (17:00)
[2018-05-16 17:25] LABS: Appearance,Urine Clear (Clear); Bilirubin,Urine Negative (Negative); Blood,Urine Negative (Negative); Color,Urine Yellow; Glucose,Urine (UA) Negative (Negative); Ketones,Urine Negative (Negative); Leukocyte Esterase,Urine Negative (Negative); Nitrite,Urine Negative (Negative); PH, Urine 5.5 (5.0-8.0); Protein,Urine Negative (Negative); Specific Gravity,Urine 1.023 (1.001-1.035); Urobilinogen,Urine <2.0 mg/dL (<2.0)
--- NOTE | 2018-05-16 17:40 | CT ---
EXAMINATION TYPE: CT brain wo con DATE OF EXAM: 05/16/2018 COMPARISON: MRI brain November 20, 2017. HISTORY: Right eye and head pain CT DLP: 1107.4 mGycm. Automated Exposure Control for Dose Reduction was Utilized. TECHNIQUE: CT scan of the head is performed without contrast. FINDINGS: There is no acute intracranial hemorrhage, mass effect, or midline shift identified. The ventricles and sulci are within normal limits in size. Carrillo-white matter differentiation is maintai walter. Small white matter lesions bilateral frontal lobes are better seen on MRI versus CT. The globes are intact and the visualized sinuses are clear. IMPRESSION: No acute intracranial hemorrhage or midline shift is seen.
--- NOTE | 2018-05-16 17:46 | ED ---
General Adult HPI - General Chief complaint: Headache Stated complaint: revisit-head pain Time Seen by Provider: 05/16/18 16:31 Source: patient, RN notes reviewed Mode of arrival: ambulatory Limitations: no limitations - History of Present Illness Initial comments: 23-year-old male presents to the emergency department for a chief complaint of headache 5 days. Patient states he has had these headaches before. He describes as a sharp stabbing pain behind his right eye. He states it comes and goes. He states his pain is not too bad at this time. Patient also feels congested. He was seen in the ER and started on amoxicillin 4 days ago. He has a history of benign lesions on his brain that he follows neurology 4. These were found to be completely benign apparently. Patient also admits to some mild blurry vision in the right eye that comes and goes with the pain. Denies nausea or vomiting. Patient would also like his urine to be tested as he has some perineal pain consistent with past episodes of prostatitis. Patient has no other complaints at this time including shortness of breath, chest pain, abdominal pain, nausea or vomiting, or visual changes. - Related Data Home Medications Medication Instructions Recorded Confirmed Aspirin/Acetaminophen/Caffeine 2 tab PO Q6H PRN 05/13/18 05/16/18 [Excedrin Extra Strength Caplet] Ibuprofen [Motrin Ib] 400 mg PO Q8H PRN 05/16/18 05/16/18 Multivitamins, Thera [Multivitamin 1 tab PO DAILY 05/16/18 05/16/18 (formulary)] Previous Rx's Medication Instructions Recorded Azithromycin [Zithromax Z-pack] 0 mg PO DIRECTED #6 tab 05/13/18 Ibuprofen [Motrin] 600 mg PO Q6HR PRN #20 tab 05/16/18 Allergies Allergy/AdvReac Type Severity Reaction Status Date / Time adhesive tape Allergy Rash/Hives Verified 05/16/18 17:50 amoxicillin Allergy Unknown Verified 05/16/18 17:46 Iodinated Contrast- Oral and Allergy Unknown Verified 05/16/18 17:46 IV Dye levofloxacin [From Levaquin] Allergy Unknown Verified 05/16/18 17:46 Review of Systems ROS Statement: Those systems with pertinent positive or pertinent negative responses have been documented in the HPI. ROS Other: All systems not noted in ROS Statement are negative. Past Medical History Past Medical History: GERD/Reflux Additional Past Medical History / Comment(s): See Dr Swanson H&P, "silght prolonged heart beat", having dizzy spells, History of Any Multi-Drug Resistant Organisms: None Reported Past Surgical History: No Surgical Hx Reported Additional Past Surgical History / Comment(s): colonoscopy Past Anesthesia/Blood Transfusion Reactions: No Reported Reaction Past Psychological History: Anxiety Smoking Status: Never smoker Past Alcohol Use History: None Reported, Daily Past Drug Use History: Marijuana - Past Family History Mother Family Medical History: No Reported History General Exam Limitations: no limitations General appearance: alert, in no apparent distress Head exam: Present: atraumatic, normocephalic, normal inspection Eye exam: Present: normal appearance, PERRL, EOMI (No pain with movement of the right eye). Absent: scleral icterus, conjunctival injection, periorbital swelling (non erythematous, no swelling noted), periorbital tenderness ENT exam: Present: normal exam, normal oropharynx, mucous membranes moist, TM's normal bilaterally, normal external ear exam Neck exam: Present: normal inspection, full ROM. Absent: tenderness, meningismus, lymphadenopathy Respiratory exam: Present: normal lung sounds bilaterally. Absent: respiratory distress, wheezes, rales, rhonchi, stridor Cardiovascular Exam: Present: regular rate, normal rhythm, normal heart sounds. Absent: systolic murmur, diastolic murmur, rubs, gallop, clicks Neurological exam: Present: alert, oriented X3, CN II-XII intact, normal gait Expanded Patient oriented to: Present: person, place, time Speech: Present: fluid speech Cranial nerves: EOM's Intact: Normal, Tongue Deviation: Normal, Nystagmus: Normal, Facial Sensation: Normal Cerebellar function: Finger to Nose: Normal, Romberg: Normal Upper motor neuron: Pronator Drift: Normal Sensory exam: Upper Extremity Light Touch: Normal, Upper Extremity Pin Prick: Normal, Lower Extremity Light Touch: Normal, Lower Extremity Pin Prick: Normal Motor strength exam: RUE: 5, LUE: 5, RLE: 5, LLE: 5 Eye Response: (4) open spontaneously Motor Response: (6) obeys commands Verbal Response: (5) oriented Santos Total: 15 Psychiatric exam: Present: normal affect, normal mood Course Vital Signs 05/16/18 15:19 Temperature 98.2 F Pulse Rate 62 Respiratory 18 Rate Blood Pressure 140/73 O2 Sat by Pulse 99 Oximetry Medical Decision Making - Medical Decision Making 23-year-old male presents to the emergency department for a chief complaint of right-sided headache 5 days. Patient states he also has mild blurry vision with this. No pain with movement of the eye. No erythema surrounding the eye. No focal neuro deficits. Patient is well-appearing. Patient given Toradol, pain improved significantly. Patient does have a history of benign lesions therefore CT was ordered as patient refused this at initial visit and stated he would like this done today. CT showed no acute intracranial hemorrhage or midline shift. Small white matter lesions in the bilateral frontal lobes are better seen on MRI versus CT. Globes are intact and sinuses are clear. At this time patient may be experiencing a migraine headache or cluster headache. Patient already sees a neurologist and will follow up with them. Patient will return here if he has any worsening symptoms. - Lab Data Lab Results 05/16/18 Range/Units 17:05 Urine Color Yellow Urine Appearance Clear (Clear) Urine pH 5.5 (5.0-8.0) Ur Specific [place] 1.023 (1.001-1.035) Urine Protein Negative (Negative) Urine Glucose (UA) Negative (Negative) Urine Ketones Negative (Negative) Urine Blood Negative (Negative) Urine Nitrite Negative (Negative) Urine Bilirubin Negative (Negative) Urine Urobilinogen <2.0 (<2.0) mg/dL Ur Leukocyte Esterase Negative (Negative) Disposition Clinical Impression: Headache Disposition: HOME SELF-CARE Condition: Good Instructions (If sedation given, give patient instructions): Acute Headache (ED) Additional Instructions: Please take Motrin and Tylenol for pain. Please follow-up with primary care and neurology in 1-2 days. Return here to the emergency department if you have any worsening symptoms. Prescriptions: Ibuprofen [Motrin] 600 mg PO Q6HR PRN #20 tab PRN Reason: Pain Is patient prescribed a controlled substance at d/c from ED?: No Referrals: Anayeli Sales DO [Primary Care Provider] - 1-2 days Time of Disposition: 18:02
[2018-05-16 18:45] VITALS: BP 148/70; PULSE 70; TEMP 98
[2018-05-17 14:47] LABS: N. gonorrhoeae,PCR Negative (Neg,Equiv); Neisseria Source Urine
[2018-05-17 14:54] LABS: C. trachomatis,PCR Negative (Neg,Equiv); Chlamydia trachomatis Source Urine
== END 2018-05-16 18:44 | disposition home or self-care (01) ==
LOC: EC 14:51
DX: R51 Headache (principal); H53.8 Other visual disturbances; R93.89 Abnormal findings on diagnostic imaging of other specified body structures; Z88.0 Allergy status to penicillin; Z88.1 Allergy status to other antibiotic agents; Z91.041 Radiographic dye allergy status; Z91.048 Other nonmedicinal substance allergy status
CPT/HCPCS: 81003; 87491; 87591; 70450; 99284; 96372; J1885

== ENCOUNTER 2018-06-25 12:19 | Emergency (ER) | payer BC ==
[2018-06-25 12:30] VITALS: BP 143/82; PULSE 79; RESP 18; TEMP 98.3
[2018-06-25] MEDS ORDERED: SODIUM CHLORIDE 0.9% 1,000 ML IV STA (12:37)
[2018-06-25] MEDS ORDERED: KETOROLAC 30 MG/ML 1 ML VIAL IVP STA (12:37)
[2018-06-25] MEDS ORDERED: diphenhydrAMINE 50 MG/ML 1 ML VIAL IVP STA (12:40)
[2018-06-25 13:06] LABS: Appearance,Urine Clear (Clear); Basophils # (A) 0.1 k/uL (0-0.2); Basophils % (A) 1 %; Bilirubin,Urine Negative (Negative); Blood,Urine Negative (Negative); Color,Urine Yellow; Eosinophils # (A) 0.1 k/uL (0-0.7); Eosinophils % (A) 2 %; Glucose,Urine (UA) Negative (Negative); HCT 43.7 % (39.0-53.0); Ketones,Urine Negative (Negative); Leukocyte Esterase,Urine Negative (Negative); Lymphocytes # (A) 1.6 k/uL (1.0-4.8); Lymphocytes % (A) 28 %; MCH 31.9 pg (25.0-35.0); MCHC 34.3 g/dL (31.0-37.0); MCV 92.9 fL (80.0-100.0); Mean Platelet Volume 6.9; Monocytes # (A) 0.3 k/uL (0-1.0); Monocytes % (A) 5 %; Neutrophils # (A) 3.6 k/uL (1.3-7.7); Neutrophils % (A) 61 %; Nitrite,Urine Negative (Negative); Platelet Count 240 k/uL (150-450); Protein,Urine Negative (Negative); RBC 4.71 m/uL (4.30-5.90); RDW 12.7 % (11.5-15.5); Specific Gravity,Urine 1.014 (1.001-1.035); Urobilinogen,Urine <2.0 mg/dL (<2.0); WBC 5.8 k/uL (3.8-10.6)
[2018-06-25 13:15] LABS: ALT 78 U/L (21-72); AST 47 U/L (17-59); Albumin 5.2 g/dL (3.5-5.0); Alkaline Phosphatase 81 U/L (38-126); Amylase 109 U/L (30-110); Anion Gap 11 mmol/L; Blood Urea Nitrogen 10 mg/dL (9-20); Calcium 10.3 mg/dL (8.4-10.2); Carbon Dioxide 25 mmol/L (22-30); Chloride 103 mmol/L (98-107); Glucose 102 mg/dL (74-99); Lipase 55 U/L (23-300); Potassium 4.6 mmol/L (3.5-5.1); Sodium 139 mmol/L (137-145); Total Bilirubin 0.7 mg/dL (0.2-1.3); Total Protein 8.5 g/dL (6.3-8.2)
--- NOTE | 2018-06-25 13:42 | ED ---
Abdominal Pain HPI - General Chief Complaint: Abdominal Pain Stated Complaint: hernia Time Seen by Provider: 06/25/18 12:33 Source: patient, RN notes reviewed Mode of arrival: ambulatory Limitations: no limitations - History of Present Illness Initial Comments: This a 23-year-old male presents emergency Department chief complaint of lower abdominal pain. Patient states pain is unbearable's morning. Patient states that the pain worsen while at work in his suprapubic region. He has been recently told that he has a umbilical hernia. Patient states that he does have pain in the past. This is lower. He has no dysuria no hematuria. Patient denies any no fever, chills, diarrhea, constipation, fever, chills, chest pain or any other complaints at this time. Patient states pain is worse with movement. - Related Data Home Medications Medication Instructions Recorded Confirmed Aspirin/Acetaminophen/Caffeine 2 tab PO Q6H PRN 05/13/18 05/16/18 [Excedrin Extra Strength Caplet] Ibuprofen [Motrin Ib] 400 mg PO Q8H PRN 05/16/18 05/16/18 Multivitamins, Thera [Multivitamin 1 tab PO DAILY 05/16/18 05/16/18 (formulary)] Previous Rx's Medication Instructions Recorded Azithromycin [Zithromax Z-pack] 0 mg PO DIRECTED #6 tab 05/13/18 Ibuprofen [Motrin] 600 mg PO Q6HR PRN #20 tab 05/16/18 Ibuprofen [Motrin] 600 mg PO Q8HR PRN #30 tab 06/25/18 Allergies Allergy/AdvReac Type Severity Reaction Status Date / Time adhesive tape Allergy Rash/Hives Verified 05/16/18 17:50 amoxicillin Allergy Unknown Verified 05/16/18 17:46 Iodinated Contrast- Oral and Allergy Unknown Verified 05/16/18 17:46 IV Dye levofloxacin [From Levaquin] Allergy Unknown Verified 05/16/18 17:46 Review of Systems ROS Statement: Those systems with pertinent positive or pertinent negative responses have been documented in the HPI. ROS Other: All systems not noted in ROS Statement are negative. Past Medical History Past Medical History: GERD/Reflux Additional Past Medical History / Comment(s): See Dr Swanson H&P, "silght prolonged heart beat", having dizzy spells, History of Any Multi-Drug Resistant Organisms: None Reported Past Surgical History: No Surgical Hx Reported Additional Past Surgical History / Comment(s): colonoscopy Past Anesthesia/Blood Transfusion Reactions: No Reported Reaction Past Psychological History: Anxiety Smoking Status: Never smoker Past Alcohol Use History: Daily Past Drug Use History: Marijuana - Past Family History Mother Family Medical History: No Reported History General Exam Limitations: no limitations General appearance: alert, in no apparent distress Head exam: Present: atraumatic, normocephalic, normal inspection ENT exam: Present: normal exam, normal oropharynx, mucous membranes moist Neck exam: Present: normal inspection, full ROM. Absent: tenderness, menin gismus, lymphadenopathy Respiratory exam: Present: normal lung sounds bilaterally. Absent: respiratory distress, wheezes, rales, rhonchi, stridor Cardiovascular Exam: Present: regular rate, normal rhythm, normal heart sounds. Absent: systolic murmur, diastolic murmur, rubs, gallop, clicks GI/Abdominal exam: Present: soft, tenderness (Mild discomfort in the suprapubic region), normal bowel sounds. Absent: distended, guarding, rebound, rigid Back exam: Absent: CVA tenderness (R), CVA tenderness (L) Skin exam: Present: warm, dry, intact, normal color. Absent: rash Course Vital Signs 06/25/18 12:28 Temperature 98.3 F Pulse Rate 79 Respiratory 18 Rate Blood Pressure 143/82 O2 Sat by Pulse 97 Oximetry Medical Decision Making - Medical Decision Making 23-year-old male presents emergency Department with chief complaint of abdominal pain. Patient had laboratory, CT secondary concerns of incarcerated hernia that he has been told he had a prior umbilical hernia. CT is unremarkable. Patient has abdominal wall strain. Pain is worse when he was lifting objects at work. Patient advised to limit lifting, will be discharged with anti-inflammatories. Return parameters were discussed. - Lab Data Result diagrams: 06/25/18 12:45 06/25/18 12:45 Lab Results 06/25/18 06/25/18 06/25/18 Range/Units 12:45 12:45 12:45 WBC 5.8 (3.8-10.6) k/uL RBC 4.71 (4.30-5.90) m/uL Hgb 15.0 (13.0-17.5) gm/dL Hct 43.7 (39.0-53.0) % MCV 92.9 (80.0-100.0) fL MCH 31.9 (25.0-35.0) pg MCHC 34.3 (31.0-37.0) g/dL RDW 12.7 (11.5-15.5) % Plt Count 240 (150-450) k/uL Neutrophils % 61 % Lymphocytes % 28 % Monocytes % 5 % Eosinophils % 2 % Basophils % 1 % Neutrophils # 3.6 (1.3-7.7) k/uL Lymphocytes # 1.6 (1.0-4.8) k/uL Monocytes # 0.3 (0-1.0) k/uL Eosinophils # 0.1 (0-0.7) k/uL Basophils # 0.1 (0-0.2) k/uL Sodium 139 (137-145) mmol/L Potassium 4.6 (3.5-5.1) mmol/L Chloride 103 (98-107) mmol/L Carbon Dioxide 25 (22-30) mmol/L Anion Gap 11 mmol/L BUN 10 (9-20) mg/dL Creatinine 1.01 (0.66-1.25) mg/dL Est GFR (CKD-EPI)AfAm >90 (>60 ml/min/1.73 sqM) Est GFR (CKD-EPI)NonAf >90 (>60 ml/min/1.73 sqM) Glucose 102 H (74-99) mg/dL Plasma Lactic Acid Bernabe 1.5 (0.7-2.0) mmol/L Calcium 10.3 H (8.4-10.2) mg/dL Total Bilirubin 0.7 (0.2-1.3) mg/dL AST 47 (17-59) U/L ALT 78 H (21-72) U/L Alkaline Phosphatase 81 (38-126) U/L Total Protein 8.5 H (6.3-8.2) g/dL Albumin 5.2 H (3.5-5.0) g/dL Amylase 109 (30-110) U/L Lipase 55 (23-300) U/L Urine Color Urine Appearance (Clear) Urine pH (5.0-8.0) Ur Specific [place] (1.001-1.035) Urine Protein (Negative) Urine Glucose (UA) (Negative) Urine Ketones (Negative) Urine Blood (Negative) Urine Nitrite (Negative) Urine Bilirubin (Negative) Urine Urobilinogen (<2.0) mg/dL Ur Leukocyte Esterase (Negative) 06/25/18 Range/Units 12:45 WBC (3.8-10.6) k/uL RBC (4.30-5.90) m/uL Hgb (13.0-17.5) gm/dL Hct (39.0-53.0) % MCV (80.0-100.0) fL MCH (25.0-35.0) pg MCHC (31.0-37.0) g/dL RDW (11.5-15.5) % Plt Count (150-450) k/uL Neutrophils % % Lymphocytes % % Monocytes % % Eosinophils % % Basophils % % Neutrophils # (1.3-7.7) k/uL Lymphocytes # (1.0-4.8) k/uL Monocytes # (0-1.0) k/uL Eosinophils # (0-0.7) k/uL Basophils # (0-0.2) k/uL Sodium (137-145) mmol/L Potassium (3.5-5.1) mmol/L Chloride (98-107) mmol/L Carbon Dioxide (22-30) mmol/L Anion Gap mmol/L BUN (9-20) mg/dL Creatinine (0.66-1.25) mg/dL Est GFR (CKD-EPI)AfAm (>60 ml/min/1.73 sqM) Est GFR (CKD-EPI)NonAf (>60 ml/min/1.73 sqM) Glucose (74-99) mg/dL Plasma Lactic Acid Bernabe (0.7-2.0) mmol/L Calcium (8.4-10.2) mg/dL Total Bilirubin (0.2-1.3) mg/dL AST (17-59) U/L ALT (21-72) U/L Alkaline Phosphatase (38-126) U/L Total Protein (6.3-8.2) g/dL Albumin (3.5-5.0) g/dL Amylase (30-110) U/L Lipase (23-300) U/L Urine Color Yellow Urine Appearance Clear (Clear) Urine pH 7.0 (5.0-8.0) Ur Specific [place] 1.014 (1.001-1.035) Urine Protein Negative (Negative) Urine Glucose (UA) Negative (Negative) Urine Ketones Negative (Negative) Urine Blood Negative (Negative) Urine Nitrite Negative (Negative) Urine Bilirubin Negative (Negative) Urine Urobilinogen <2.0 (<2.0) mg/dL Ur Leukocyte Esterase Negative (Negative) Disposition Clinical Impression: Abdominal wall strain Disposition: HOME SELF-CARE Condition: Stable Instructions (If sedation given, give patient instructions): Muscle Strain (ED) Additional Instructions: Please return to the Emergency Department if symptoms worsen or any other concerns. Prescriptions: Ibuprofen [Motrin] 600 mg PO Q8HR PRN #30 tab PRN Reason: Pain Is patient prescribed a controlled substance at d/c from ED?: No Referrals: Anayeli Sales DO [Primary Care Provider] - 1-2 days Time of Disposition: 14:02
--- NOTE | 2018-06-25 13:47 | CT ---
EXAMINATION TYPE: CT abdomen pelvis w con DATE OF EXAM: 06/25/2018 COMPARISON: NONE HISTORY: 23-year-old male Periumbilical pain TECHNIQUE: Contiguous axial scanning of the abdomen and pelvis following administration of 100 ml Iso ana 300 IV contrast. Delayed images through the kidneys and coronal/sagittal reconstructions perform ed. CT DLP: 1054.1 mGycm Automated exposure control for dose reduction was used. FINDINGS: Heart normal size without pericardial effusion. Tiny hiatal hernia. Lung bases clear without pleural effusion. Liver mildly enlarged at 18.2 cm. Slightly low attenuation of the liver parenchyma with some focal fa tty sparing along the puneet hepatis. No biliary ductal dilatation. Portal venous system is patent. Gallbladder, adrenal glands, kidneys, spleen, and pancreas appear within normal limits. No dilated small bowel, free fluid, or free air A few prominent fluid-filled small bowel loops in the lower abdomen and pelvis. No dilated small dayan l, free fluid, or free air. A few scattered prominent but nonenlarged left upper quadrant mesenteric lymph nodes are demonstrated . The appendix shows some internal air. No abnormal thickening or surrounding inflammation. Mild stool within the right side of the colon. No pericolonic inflammatory change. Bladder partially urine distended. No abnormal fluid collection the pelvis or pelvic lymphadenopathy. Bones: No osseous destructive process. IMPRESSION: 1. NORMAL APPENDIX. 2. MILD HEPATOMEGALY (18.2 CM) WITH UNDERLYING HEPATIC STEATOSIS. 3. SOME PROMINENT FLUID-FILLED SMALL BOWEL LOOPS IN THE LOWER ABDOMEN AND PELVIS MAY BE TRANSIENT OR COULD REPRESENT A REGIONAL ENTERITIS. OTHERWISE, NO ACUTE INFLAMMATORY PROCESS IDENTIFIED IN THE ABDO MEN OR PELVIS TO EXPLAIN THE PATIENT'S SYMPTOMS.
[2018-06-25] MEDS ORDERED: ACET/COD 300 MG/30 MG STARTER PACK 6 TAB BTL PO STA (14:03)
== END 2018-06-25 14:19 | disposition home or self-care (01) ==
LOC: EC 12:19
DX: S39.011A Strain of muscle, fascia and tendon of abdomen, initial encounter (principal); Z88.0 Allergy status to penicillin; Z88.1 Allergy status to other antibiotic agents; Z91.041 Radiographic dye allergy status; Z91.048 Other nonmedicinal substance allergy status; Z87.19 Personal history of other diseases of the digestive system; X50.9XXA Other and unspecified overexertion or strenuous movements or postures, initial encounter; Y92.69 Other specified industrial and construction area as the place of occurrence of the external cause
CPT/HCPCS: 36415; 80053; 82150; 83605; 83690; 85025; 81003; 74177; 99284; 96374; 96375; 96361; J1200; J1885; Q9967

== ENCOUNTER 2018-07-31 19:05 | Emergency (ER) | payer BC ==
[2018-07-31 19:28] VITALS: RESP 18
--- NOTE | 2018-07-31 20:17 | ED ---
General Adult HPI - General Source: patient, RN notes reviewed, old records reviewed Mode of arrival: ambulatory Limitations: no limitations <Blas Carpio - Last Filed: 07/31/18 22:14> <Lakia Dill - Last Filed: 08/01/18 07:42> - General Chief complaint: Headache Stated complaint: rt head pain Time Seen by Provider: 07/31/18 19:44 - History of Present Illness Initial comments: 23-year-old male patient past medical history of glaucoma, headache disorder presents to ED with approximately 5 days of right otalgia, headache. Patient states that the headache is located in his right hemisphere. Patient states he had some mild waxing and waning blurry vision, however states this is baseline for him. Patient is followed by ophthalmology and had a self stimulation procedure approximately one month ago for glaucoma. Patient is not currently on any regular medication. Patient was seen by urgent care today for chief complaint of right otalgia. Patient was prescribed azithromycin for right otitis media and was advised to present to ER for evaluation of headache. Patient denies any recent trauma or loss of consciousness. Patient denies any chest pain shortness breath abdominal pain nausea vomiting or diarrhea. Systemic: Pt denies fatigue, myalgia, fever/chills, rash. Pt denies weakness, night sweats, weight loss. Neuro: Pt denies visual disturbances, syncope or pre-syncope. HEENT: Pt denies ocular discharge or irritation, otalgia, rhinorrhea, pharyngitis or notable lymphadenopathy. Cardiopulmonary: Pt denies chest pain, SOB, heart palpitations, dyspnea on exertion. Abdominal/GI: Pt denies abdominal pain, n/v/d. : Pt denies dysuria, burning w/ urination, frequency/urgency. Denies new onset urinary or bowel incontinence. MSK: Pt denies myalgia, loss of strength or function in extremities. Neuro: Pt denies new onset weakness, paresthesias. (Blas Carpio) - Related Data Home Medications Medication Instructions Recorded Confirmed Multivitamins, Thera [Multivitamin 1 tab PO DAILY 05/16/18 07/31/18 (formulary)] Allergies Allergy/AdvReac Type Severity Reaction Status Date / Time adhesive tape Allergy Rash/Hives Verified 07/31/18 21:26 amoxicillin Allergy Unknown Verified 07/31/18 21:26 Iodinated Contrast- Oral and Allergy Unknown Verified 07/31/18 21:26 IV Dye levofloxacin [From Levaquin] Allergy Unknown Verified 07/31/18 21:26 Review of Systems ROS Other: All systems not noted in ROS Statement are negative. <YumikoobdulioBlas Cisco - Last Filed: 07/31/18 22:14> ROS Other: All systems not noted in ROS Statement are negative. <Lakia Dill - Last Filed: 08/01/18 07:42> ROS Statement: Those systems with pertinent positive or pertinent negative responses have been documented in the HPI. Past Medical History Past Medical History: GERD/Reflux Additional Past Medical History / Comment(s): See Dr Swanson H&P, "silght prolonged heart beat", having dizzy spells, glaucoma History of Any Multi-Drug Resistant Organisms: None Reported Past Surgical History: No Surgical Hx Reported Additional Past Surgical History / Comment(s): colonoscopy Past Anesthesia/Blood Transfusion Reactions: No Reported Reaction Past Psychological History: Anxiety Smoking Status: Current every day smoker Past Alcohol Use History: Daily Past Drug Use History: Marijuana - Past Family History Mother Family Medical History: No Reported History <Blas Carpio - Last Filed: 07/31/18 22:14> General Exam Limitations: no limitations <Blas Carpio - Last Filed: 07/31/18 22:14> - General Exam Comments Initial Comments: Constitutional: NAD, AOX3, Pt has pleasant affect. HEENT: NC/AT, trachea midline, neck supple, no lymphadenopathy. Posterior pharynx non erythematous, without exudates. External ears appear normal, without discharge. Mucous membranes moist. Eyes PERRLA, EOM intact. There is no scleral icterus. No pallor noted. IOP average of 35 bilaterally. Cardiopulmonary: RRR, no murmurs, rubs or gallops, no JVD noted. Lungs CTAB in anterior and posterior mckenzie. No peripheral edema. Abdominal exam: Abdomen soft and non-distended. Abdomen non-tender to palpation in all 4 quadrants. Bowel sounds active in LLQ. No hepatosplenomegaly. No ecchymosis Neuro: CN II-XII intact. No nuchal rigidity. MSK: No posterior calf tenderness bilaterally, homans sign negative bilaterally. Posterior tibialis and radial pulse +2 bilaterally. Sensation intact in upper and lower extremities. Full active ROM in upper and lower extremities, 5/5 stregnth. (Blas Carpio) Course Vital Signs 07/31/18 07/31/18 19:24 22:24 Temperature 98.6 F 98.0 F Pulse Rate 98 82 Respiratory 18 18 Rate Blood Pressure 148/87 142/80 O2 Sat by Pulse 98 97 Oximetry Medical Decision Making - EKG Data -: EKG Interpreted by Me <Blas Carpio - Last Filed: 07/31/18 22:14> <Lakia Dill - Last Filed: 08/01/18 07:42> - Medical Decision Making 23-year-old male patient past medical history of glaucoma, headache disorder presents to ED with approximately 5 days of right otalgia, headache. Patient states that the headache is located in his right hemisphere. Patient states he had some mild waxing and waning blurry vision, however states this is baseline for him. Denies any current visual changes. Patient is followed by ophthalmology and had a self stimulation procedure approximately one month ago for glaucoma. Patient is not currently on any regular medication. Patient was seen by urgent care today for chief complaint of right otalgia. Patient was prescribed azithromycin for right otitis media and was advised to present to ER for evaluation of headache. Patient denies any recent trauma or loss of consciousness. Patient states this is similar to headaches that he has expressed the past. States the headache had a progressive insidious onset. Denies any thunderclap headache. Patient denies any chest pain shortness breath abdominal pain nausea vomiting or diarrhea. Patient vital signs stable, afebrile.Physical exam revealed neurologic exam within normal limits. Intraocular pressure elevated average of 35 bilaterally. Patient states that this is baseline for him previously. Globes are nontender to palpation. Extraocular movements are intact. Brain CT displayed no acute process. EKG displayed incomplete right bundle-branch block. Patient does have a history of QT prolongation. Visual acuity within acceptable limits. Patient administered Toradol which improved headache. Patient discharged and will follow up with primary care provider in 1-2 days. Patient does have an appointment with ophthalmology on Wednesday which he will attend. Patient to return here condition worsens. Case discussed with Dr. Dill. (Blas Carpio) I was available for consultation in the emergency department. The history and physical exam were done by the midlevel provider. I was consulted for this patient's care. I reviewed the case with the midlevel provider and based on their presentation of the patient, I agree with the assessment, medical decision making and plan of care as documented. Chart was dictated using avandeo dictation software. Attempts were made to correct any dictation errors however some typographical errors may persist. (Lakia Dill) - EKG Data EKG Comments: Ventricular rate 87, CT interval 180, QRS 16, QT/QTC 354/425. NSR, incomplete RBBB, borderline ekg. (Blas Carpio) Disposition Is patient prescribed a controlled substance at d/c from ED?: No <Blas Carpio - Last Filed: 07/31/18 22:14> <Lakia Dill - Last Filed: 08/01/18 07:42> Clinical Impression: Acute headache Disposition: HOME SELF-CARE Condition: Stable Instructions (If sedation given, give patient instructions): Acute Headache (ED) Additional Instructions: Patient to adhere to previously discussed treatment plan and will take medication(s) as directed. Patient to follow up with PCP in 1-2 days. Patient to return to ED if symptoms do not improve. Follow-up with primary care provider in 1-2 days. Follow-up with aesthetics instructor previously scheduled appointment. Return to ER if condition worsens in any way. Referrals: None,Stated [Primary Care Provider] - 1-2 days
--- NOTE | 2018-07-31 20:47 | CT ---
EXAMINATION TYPE: CT brain wo con DATE OF EXAM: 07/31/2018 COMPARISON: 05/16/2018 INDICATION: Headache and right ear pain. DLP: 1164.4 mGycm, Automated exposure control for dose reduction was used. CONTRAST: None CT of the brain is performed utilizing 3 mm thick sections through the posterior fossa and 3 mm thick sections through the remaining calvarium. Study is performed within 24 hours of arrival to the hosp [facility]. No abnormal hyperdensity is present to suggest an acute intracranial hemorrhage. No mass lesion is evident. No acute infarcts are evident. Ventricles and sulci are appropriate for the patient age. Paranasal sinuses and mastoid air cells within the [id number] are clear. IMPRESSIONS: 1. No acute intracranial process
[2018-07-31] MEDS ORDERED: KETOROLAC 60 MG/2 ML VIAL IM STA (21:17)
[2018-07-31 22:26] VITALS: BP 142/80; PULSE 82; TEMP 98
== END 2018-07-31 22:26 | disposition home or self-care (01) ==
LOC: EC 19:05
DX: R51 Headache (principal); H92.01 Otalgia, right ear; H53.8 Other visual disturbances; I45.10 Unspecified right bundle-branch block; F17.200 Nicotine dependence, unspecified, uncomplicated; Z88.0 Allergy status to penicillin; Z88.1 Allergy status to other antibiotic agents; Z91.048 Other nonmedicinal substance allergy status; Z91.041 Radiographic dye allergy status
CPT/HCPCS: 93005; 70450; 99284; 96372; J1885